=== PATIENT | female | born 1985 | race Caucasian/White ===

== ENCOUNTER → 2018-01-15 | Outpatient (CLI) | payer OTHER ==
[2016-01-17 10:35] VITALS: BP 105/63
[~2018-01-15] MED LIST: DOCU-150 PO; LEVO500T59 PO; METR500T PO; OXYC-327 PO; no home meds
[2018-01-15 13:02] LABS: BASO % 0 % (0-3); EOS # 0.2 x10^3/uL (0.0-0.7); EOS % 2 % (0-3); HEMATOCRIT 40.6 % (36.0-47.0); HEMOGLOBIN 13.5 g/dL (12.0-15.5); LYMPH # 2.2 x10^3/uL (1.0-4.8); LYMPH % 20 % (24-48); MEAN CORPUSCULAR HEMOGLOBIN 27 pg (25-35); MEAN CORPUSCULAR HGB CONC 33 g/dL (31-37); MEAN CORPUSCULAR VOLUME 80 fL (79-100); MONO # 0.6 x10^3/uL (0.0-1.1); MONO % 5 % (0-9); NEUT # 8.2 x10^3uL (1.8-7.7); NEUT % 73 % (31-73); PLATELET COUNT 521 x10^3/uL (140-400); RED BLOOD COUNT 5.08 x10^6/uL (3.50-5.40); WHITE BLOOD COUNT 11.2 x10^3/uL (4.0-11.0)
[2018-01-15 13:05] LABS: CALCIUM 8.9 mg/dL (8.5-10.1); CREATININE 0.7 mg/dL (0.6-1.0); GFR 95.8; POTASSIUM 4.1 mmol/L (3.5-5.1)
== END | disposition home or self-care (01) ==
LOC: PMG 12:24
PROVIDERS: ATTEND Family Medicine
DX: D72.829 Elevated white blood cell count, unspecified (principal)
CPT/HCPCS: 36415; 80048; 84443; 85025

== ENCOUNTER → 2018-04-15 | Outpatient (CLI) | payer OTHER ==
[2016-01-17 10:35] VITALS: BP 105/63
[2018-04-15 15:59] LABS: BASO % 0 % (0-3); EOS # 0.3 x10^3/uL (0.0-0.7); EOS % 2 % (0-3); HEMATOCRIT 39.1 % (36.0-47.0); HEMOGLOBIN 13.2 g/dL (12.0-15.5); LYMPH # 3.1 x10^3/uL (1.0-4.8); LYMPH % 24 % (24-48); MEAN CORPUSCULAR HEMOGLOBIN 27 pg (25-35); MEAN CORPUSCULAR HGB CONC 34 g/dL (31-37); MEAN CORPUSCULAR VOLUME 79 fL (79-100); MONO # 0.9 x10^3/uL (0.0-1.1); MONO % 7 % (0-9); NEUT # 8.5 x10^3uL (1.8-7.7); NEUT % 66 % (31-73); PLATELET COUNT 530 x10^3/uL (140-400); RED BLOOD COUNT 4.96 x10^6/uL (3.50-5.40); RED CELL DISTRIBUTION WIDTH 16.1 % (11.5-14.5); WHITE BLOOD COUNT 12.8 x10^3/uL (4.0-11.0)
[2018-04-15 16:05] LABS: ALBUMIN 3.6 g/dL (3.4-5.0); ALBUMIN/GLOBULIN RATIO 0.9 (1.0-1.7); CALCIUM 9.3 mg/dL (8.5-10.1); CREATININE 0.7 mg/dL (0.6-1.0); GFR 95.8; POTASSIUM 3.9 mmol/L (3.5-5.1); TOTAL BILIRUBIN 0.2 mg/dL (0.2-1.0); TOTAL PROTEIN 7.4 g/dL (6.4-8.2)
== END | disposition home or self-care (01) ==
LOC: PMG 14:49
PROVIDERS: ATTEND Family Medicine
DX: R53.83 Other fatigue (principal); Z88.0 Allergy status to penicillin; Z87.891 Personal history of nicotine dependence; Z68.35 Body mass index [BMI] 35.0-35.9, adult
CPT/HCPCS: 36415; 80053; 85025

== ENCOUNTER → 2018-08-05 | Outpatient (CLI) | payer OTHER ==
[2016-01-17 10:35] VITALS: BP 105/63
[~2018-08-05] MED LIST changes: -OXYC-327 PO; +OXYC1TAB19 PO
--- NOTE | 2018-08-05 16:43 | RAD ---
3 view study of the right knee Clinical indications: No known injury. Right knee pain. Unable to bear weight. No redness or swelling. FINDINGS: No acute fracture or dislocation or osteolytic process is seen. There is mild degenerative spurring without joint space narrowing of the medial tibiofemoral joint compartment. There is minimal degenerative spurring of the posterior superior aspect of the patella without significant joint space narrowing of the patellofemoral joint compartment. No significant right knee joint effusion is seen. IMPRESSION: Mild degenerative spurring of the right knee. Electronically signed by: Rock Perez MD (08/05/2018 4:39 PM) [facility]
== END | disposition home or self-care (01) ==
LOC: PMG 10:24
PROVIDERS: ATTEND Family Medicine
DX: M76.891 Other specified enthesopathies of right lower limb, excluding foot (principal)
CPT/HCPCS: 73562

== ENCOUNTER → 2020-09-08 | Outpatient (CLI) | payer OTHER ==
[2016-01-17 10:35] VITALS: BP 105/63
[2020-09-08 11:11] LABS: BASO # 0.1 x10^3/uL (0.0-0.2); BASO % 1 % (0-3); EOS # 0.2 x10^3/uL (0.0-0.7); EOS % 1 % (0-3); HEMATOCRIT 38.9 % (36.0-47.0); HEMOGLOBIN 12.8 g/dL (12.0-15.5); LYMPH # 2.8 x10^3/uL (1.0-4.8); LYMPH % 20 % (24-48); MEAN CORPUSCULAR HEMOGLOBIN 27 pg (25-35); MEAN CORPUSCULAR HGB CONC 33 g/dL (31-37); MEAN CORPUSCULAR VOLUME 81 fL (79-100); MONO # 0.6 x10^3/uL (0.0-1.1); MONO % 5 % (0-9); NEUT % 73 % (31-73); PLATELET COUNT 588 x10^3/uL (140-400); RED BLOOD COUNT 4.81 x10^6/uL (3.50-5.40); RED CELL DISTRIBUTION WIDTH 15.2 % (11.5-14.5); WHITE BLOOD COUNT 13.8 x10^3/uL (4.0-11.0)
[2020-09-08 11:19] LABS: ALBUMIN 3.7 g/dL (3.4-5.0); ALBUMIN/GLOBULIN RATIO 0.9 (1.0-1.7); CALCIUM 9.5 mg/dL (8.5-10.1); CREATININE 0.7 mg/dL (0.6-1.0); GFR 94.7; POTASSIUM 4.4 mmol/L (3.5-5.1); TOTAL BILIRUBIN 0.2 mg/dL (0.2-1.0); TOTAL PROTEIN 7.7 g/dL (6.4-8.2)
[2020-09-09 00:25] LABS: HEMOGLOBIN A1C 6.4 % (4.8-5.6)
[2020-09-09 10:45] LABS: FREE T4 0.79 ng/dL (0.76-1.46); THYROID STIM HORMONE (TSH) 1.367 uIU/mL (0.358-3.740)
== END ==
LOC: PMG 10:17
PROVIDERS: ATTEND Family Medicine
DX: E78.1 Pure hyperglyceridemia (principal); E66.09 Other obesity due to excess calories; E28.2 Polycystic ovarian syndrome; D72.829 Elevated white blood cell count, unspecified
CPT/HCPCS: 36415; 80053; 80061; 83036; 84439; 84443; 85025

== ENCOUNTER → 2021-02-14 | Outpatient (CLI) | payer OTHER ==
[2016-01-17 10:35] VITALS: BP 105/63
[~2021-02-14] MED LIST changes: -DOCU-150 PO; +DOCU-158 PO
--- NOTE | 2021-02-14 16:19 | RAD ---
XR THORACOLUMBAR History: Reason: MID BACK PAIN INTO LOW BACK PAIN / Spl. Instructions: / History: Technique: 2 views thoracolumbar spine. Comparison: None. Findings: Chronic lower thoracic anterior vertebral body wedging. Normal vertebral body alignment. No acute fra cture. Mild degenerative disc changes. Mild leftward curvature the lumbar spine. Surgical clips right upper quadrant. Calcifications projecting over the right renal fossa, likely nephrolithiasis. Impression: 1. No acute osseous abnormality. 2. Mild multilevel thoracolumbar spondylosis. 3. Right nephrolithiasis. Electronically signed by: Virgilio Guevara DO (02/14/2021 4:17 PM) [facility]
== END ==
LOC: RAD 15:22
PROVIDERS: ATTEND Family Medicine
DX: M47.815 Spondylosis without myelopathy or radiculopathy, thoracolumbar region (principal); N20.0 Calculus of kidney
CPT/HCPCS: 72080

== ENCOUNTER → 2021-11-10 | Outpatient (CLI) | payer OTHER ==
[2016-01-17 10:35] VITALS: BP 105/63
[2021-11-10 13:01] LABS: BASO # 0.1 x10^3/uL (0.0-0.2); BASO % 1 % (0-3); EOS # 0.3 x10^3/uL (0.0-0.7); EOS % 2 % (0-3); HEMOGLOBIN 11.9 g/dL (12.0-15.5); LYMPH # 2.6 x10^3/uL (1.0-4.8); LYMPH % 23 % (24-48); MEAN CORPUSCULAR HEMOGLOBIN 27 pg (25-35); MEAN CORPUSCULAR HGB CONC 33 g/dL (31-37); MEAN CORPUSCULAR VOLUME 82 fL (79-100); MONO # 0.6 x10^3/uL (0.0-1.1); MONO % 6 % (0-9); NEUT # 7.5 x10^3uL (1.8-7.7); NEUT % 68 % (31-73); PLATELET COUNT 524 x10^3/uL (140-400); RED BLOOD COUNT 4.37 x10^6/uL (3.50-5.40); RED CELL DISTRIBUTION WIDTH 14.9 % (11.5-14.5)
[2021-11-10 13:19] LABS: ALBUMIN 3.6 g/dL (3.4-5.0); ALBUMIN/GLOBULIN RATIO 1.1 (1.0-1.7); CREATININE 0.7 mg/dL (0.6-1.0); GFR 94.2; POTASSIUM 4.3 mmol/L (3.5-5.1); TOTAL BILIRUBIN 0.1 mg/dL (0.2-1.0); TOTAL PROTEIN 6.9 g/dL (6.4-8.2)
[2021-11-11 00:12] LABS: HEMOGLOBIN A1C 6.4 % (4.8-5.6)
[2021-11-11 11:03] LABS: CHOLESTEROL/HDL RATIO 6.3
== END ==
LOC: LAB 12:24
PROVIDERS: ATTEND Family Medicine
DX: Z13.220 Encounter for screening for lipoid disorders (principal); E28.2 Polycystic ovarian syndrome; I10 Essential (primary) hypertension
CPT/HCPCS: 36415; 80053; 80061; 83036; 85025